=== PATIENT | male | born 1960 | race American Indian/Alaskan Native ===

== ENCOUNTER 2017-06-02 05:06 | Emergency (ER) | payer MEDICAID ==
[~2017-06-02] VITALS: Ht 177.8 cm; Wt 71.6 kg
[~2017-06-02 05:06] MED LIST: DIPH-423 PO
[2017-06-02 05:56] LABS: BASOPHILS # (AUTO) 0.1 X10'3 (0-0.2); BASOPHILS % (AUTO) 2.8 % (0-1); EOSINOPHILS # (AUTO) 0.7 X10'3 (0-0.9); EOSINOPHILS % (AUTO) 13.9 % (0-6); HEMATOCRIT 33.3 % (42.0-52.0); HEMOGLOBIN 11.7 g/dl (14.0-17.9); LYMPHOCYTES # (AUTO) 1.9 X10'3 (1.1-4.8); LYMPHOCYTES % (AUTO) 38.2 % (21-51); MEAN CORPUSCULAR HEMOGLOBIN 32.3 PG (27.0-31.0); MEAN CORPUSCULAR HGB CONC 35.1 % (33.0-36.5); MEAN PLATELET VOLUME 7.4 FL (7.4-10.4); MONOCYTES # (AUTO) 0.4 X10'3 (0-0.9); MONOCYTES % (AUTO) 8.1 % (2-12); NEUTROPHILS # (AUTO) 1.8 X10'3 (1.8-7.7); PLATELET COUNT 83 X10'3 (140-440); RED BLOOD COUNT 3.62 X10'6 (4.70-6.10); RED CELL DISTRIBUTION WIDTH 17.3 % (11.5-14.5); WHITE BLOOD COUNT 4.9 X10'3 (4.5-11.0)
[2017-06-02 06:23] LABS: ANISOCYTOSIS 1+; PLATELET ESTIMATE DECREASED; TARGET CELLS 2+
[2017-06-02 06:33] LABS: ALANINE AMINOTRANSFERASE 62 U/L (12-78); ALBUMIN 3.3 G/DL (3.4-5.0); ALBUMIN/GLOBULIN RATIO 0.8 (1.1-1.5); ALKALINE PHOSPHATASE 154 IU/L (46-116); ANION GAP 12 (8-16); ASPARTATE AMINO TRANSFERASE 114 U/L (10-37); BILIRUBIN,TOTAL 1.3 MG/DL (0.1-1.0); BLOOD UREA NITROGEN 5 MG/DL (7-18); BUN/CREATININE RATIO 7.2 (5.4-32.0); CALCIUM 8.4 MG/DL (8.5-10.1); CHLORIDE 107 MMOL/L (99-107); CREATININE 0.69 MG/DL (0.60-1.10); GLUCOSE 116 MG/DL (70-104); POTASSIUM 3.9 MMOL/L (3.5-5.1); SODIUM 147 MMOL/L (135-145); TOTAL CARBON DIOXIDE 28.1 MMOL/L (24-32); TOTAL PROTEIN 7.7 G/DL (6.4-8.2); eGFR > 90 ML/MIN
[2017-06-02 06:34] LABS: INR 1.2 INR; PARTIAL THROMBOPLASTIN TIME 29 SECONDS (22-32); PROTHROMBIN TIME 12.1 SECONDS (9.0-12.0)
[2017-06-02 06:48] LABS: ETHANOL 0.219 GM/DL (0.0-0.010)
[2017-06-02 11:08] VITALS: BP 117/73
== END 2017-06-02 10:55 | disposition home or self-care (01) ==
LOC: ER 05:06
DX: R07.9 Chest pain, unspecified (principal); I10 Essential (primary) hypertension; G89.29 Other chronic pain; F12.90 Cannabis use, unspecified, uncomplicated; F17.200 Nicotine dependence, unspecified, uncomplicated; Z59.0 Homelessness
CPT/HCPCS: 36415; 71045; 80053; 80320; 84484; 85025; 85610; 85730; 93005; 99285; A6449; J7030

== ENCOUNTER 2017-09-17 02:59 | Emergency (ER) | payer MEDICAID ==
[~2017-09-17] VITALS: Ht 177.8 cm; Wt 57.5 kg
[2017-09-17 03:05] VITALS: BP 112/65
== END 2017-09-17 03:16 | disposition home or self-care (01) ==
LOC: ER 02:59
DX: R51 Headache (principal); R21 Rash and other nonspecific skin eruption; R46.0 Very low level of personal hygiene; I10 Essential (primary) hypertension; G89.29 Other chronic pain; M19.90 Unspecified osteoarthritis, unspecified site; Z79.899 Other long term (current) drug therapy; Z59.0 Homelessness; W21.11XA Struck by baseball bat, initial encounter; Y93.89 Activity, other specified; Y92.89 Other specified places as the place of occurrence of the external cause; Y99.2 Volunteer activity
CPT/HCPCS: 99281

== ENCOUNTER 2017-10-15 03:00 | Inpatient (IN) | payer MEDICAID ==
[~2017-10-15] VITALS: Ht 177.8 cm; Wt 67.0 kg
[2017-10-15] MEDS: pantoprazole 40MG/NS 100ML BAG 100 ML IV SCH ×2 (03:39→06:26)
[2017-10-15 03:59] LABS: BASOPHILS # (AUTO) 0.1 X10'3 (0-0.2); BASOPHILS % (AUTO) 1.7 % (0-1); EOSINOPHILS # (AUTO) 0.3 X10'3 (0-0.9); EOSINOPHILS % (AUTO) 8.1 % (0-6); HEMATOCRIT 34.4 % (42.0-52.0); HEMOGLOBIN 11.8 g/dl (14.0-17.9); LYMPHOCYTES # (AUTO) 1.2 X10'3 (1.1-4.8); LYMPHOCYTES % (AUTO) 34.2 % (21-51); MEAN CORPUSCULAR HEMOGLOBIN 33.3 PG (27.0-31.0); MEAN CORPUSCULAR HGB CONC 34.3 % (33.0-36.5); MEAN PLATELET VOLUME 7.6 FL (7.4-10.4); MONOCYTES # (AUTO) 0.3 X10'3 (0-0.9); MONOCYTES % (AUTO) 8.7 % (2-12); NEUTROPHILS # (AUTO) 1.7 X10'3 (1.8-7.7); NEUTROPHILS % (AUTO) 47.3 % (42-75); PLATELET COUNT 68 X10'3 (140-440); RED BLOOD COUNT 3.55 X10'6 (4.70-6.10); RED CELL DISTRIBUTION WIDTH 26.1 % (11.5-14.5); WHITE BLOOD COUNT 3.6 X10'3 (4.5-11.0)
[2017-10-15 04:04] LABS: INR 1.5 INR; PROTHROMBIN TIME 14.9 SECONDS (9.0-12.0)
[2017-10-15 04:08] LABS: ALANINE AMINOTRANSFERASE 52 U/L (12-78); ALBUMIN 2.2 G/DL (3.4-5.0); ALBUMIN/GLOBULIN RATIO 0.5 (1.1-1.5); ALKALINE PHOSPHATASE 247 IU/L (46-116); ANION GAP 11 (8-16); ASPARTATE AMINO TRANSFERASE 134 U/L (10-37); BILIRUBIN,TOTAL 8.9 MG/DL (0.1-1.0); BLOOD UREA NITROGEN 5 MG/DL (7-18); BUN/CREATININE RATIO 7.7 (5.4-32.0); CALCIUM 6.6 MG/DL (8.5-10.1); CHLORIDE 109 MMOL/L (99-107); CREATININE 0.65 MG/DL (0.60-1.10); GLUCOSE 119 MG/DL (70-104); POTASSIUM 3.4 MMOL/L (3.5-5.1); SODIUM 143 MMOL/L (135-145); TOTAL CARBON DIOXIDE 22.6 MMOL/L (24-32); TOTAL PROTEIN 6.9 G/DL (6.4-8.2); eGFR > 90 ML/MIN
[2017-10-15 04:10] LABS: CLARITY,URINE CLEAR (Clear); COLOR,URINE YELLOW (Yellow); GLUCOSE, URINE NEGATIVE (Neg); KETONES,URINE NEGATIVE (Neg); LEUKOCYTE ESTERASE ,URINE NEGATIVE (Neg); NITRITES, URINE NEGATIVE (Neg); OCCULT BLOOD,URINE NEGATIVE (Neg); PROTEIN,URINE NEGATIVE (Neg)
[2017-10-15 04:14] LABS: UA COLLECTION TYPE CLN CATCH MIDSTREAM
[2017-10-15 05:08] LABS: TOTAL CELLS COUNTED 100
[2017-10-15 05:10] LABS: PLATELET ESTIMATE DECREASED
[2017-10-15 05:11] LABS: TARGET CELLS 1+
[2017-10-15] MEDS ORDERED: normal saline 1000ml 1,000 ML IV SCH (05:21)
[2017-10-15] MEDS ORDERED: ondansetron/PF 4mg/2ml inj IV PRN (05:25)
[2017-10-15] MEDS ORDERED: acetaminophen 325mg tablet PO PRN (05:25)
[2017-10-15] MEDS ORDERED: albuterol 2.5 MG/3 ML nebule NEB PRN (05:35)
[2017-10-15] MEDS ORDERED: NO HOME MEDS (08:10)
[2017-10-15] MEDS ORDERED: potassium Cl 40MEQ/NS 500ml 500 ML IV PRN ×2 (08:15)
[2017-10-15] MEDS ORDERED: octreotide inj. 1,250 MCG in normal saline 250ml IV soln 243.75 ML IV SCH (08:15)
[2017-10-15] MEDS ORDERED: magnesium 4gm in 100ml NS 100 ML IV PRN (08:15)
[2017-10-15] MEDS ORDERED: magnesium Cl slow-release 64mg tablet PO PRN (08:15)
[2017-10-15] MEDS ORDERED: potassium Cl 20 mEq SR tablet PO PRN ×2 (08:15)
[2017-10-15] MEDS ORDERED: magnesium/D5W IVPB 100 ML IV PRN (08:15)
[2017-10-15 08:35] LABS: BASOPHILS # (AUTO) 0.1 X10'3 (0-0.2); BASOPHILS % (AUTO) 1.9 % (0-1); EOSINOPHILS # (AUTO) 0.3 X10'3 (0-0.9); EOSINOPHILS % (AUTO) 7.4 % (0-6); HEMATOCRIT 32.6 % (42.0-52.0); HEMOGLOBIN 11.3 g/dl (14.0-17.9); LYMPHOCYTES % (AUTO) 27.6 % (21-51); MEAN CORPUSCULAR HEMOGLOBIN 33.5 PG (27.0-31.0); MEAN CORPUSCULAR HGB CONC 34.5 % (33.0-36.5); MEAN CORPUSCULAR VOLUME 97.1 FL (78-98); MEAN PLATELET VOLUME 7.5 FL (7.4-10.4); MONOCYTES # (AUTO) 0.4 X10'3 (0-0.9); MONOCYTES % (AUTO) 10.3 % (2-12); NEUTROPHILS # (AUTO) 1.8 X10'3 (1.8-7.7); NEUTROPHILS % (AUTO) 52.8 % (42-75); PLATELET COUNT 59 X10'3 (140-440); RED BLOOD COUNT 3.36 X10'6 (4.70-6.10); RED CELL DISTRIBUTION WIDTH 27.6 % (11.5-14.5); WHITE BLOOD COUNT 3.5 X10'3 (4.5-11.0)
[2017-10-15] MEDS ORDERED: GABA600T2 PO (09:32)
[2017-10-15] MEDS ORDERED: blood pressure med (09:33)
[2017-10-15] MEDS ORDERED: HYDR-565 PO (09:35)
[2017-10-15 11:39] VITALS: BP 122/84
[2017-10-16] MEDS ORDERED: pneumococcal 23-VAL P-sac vacc 25 mcg/0.5ml vial IMVAC ONE (10:00)
== END 2017-10-15 11:35 | disposition left against medical advice (07) | DRG 253 ==
LOC: ER 03:00 → ED HOLD 05:21
PROVIDERS: ADMIT Internal Medicine; ATTEND Internal Medicine
DX: K92.2 Gastrointestinal hemorrhage, unspecified (principal); K74.60 Unspecified cirrhosis of liver; I10 Essential (primary) hypertension; B19.20 Unspecified viral hepatitis C without hepatic coma; F10.20 Alcohol dependence, uncomplicated; F17.200 Nicotine dependence, unspecified, uncomplicated; J44.9 Chronic obstructive pulmonary disease, unspecified; F12.90 Cannabis use, unspecified, uncomplicated; F41.9 Anxiety disorder, unspecified; G89.29 Other chronic pain; M19.90 Unspecified osteoarthritis, unspecified site; Z59.0 Homelessness; Z72.89 Other problems related to lifestyle
CPT/HCPCS: 36415; 76700; 80053; 81003; 85025; 85610; 87070; 99285; C9113; J2354; J7030

== ENCOUNTER 2017-12-13 17:40 | Inpatient (IN) | payer MEDICAID ==
[~2017-12-13] VITALS: Ht 1686.6 cm; Wt 64.7 kg
[~2017-12-13 17:40] MED LIST changes: -DIPH-423 PO; +GABA600T2 PO; +HYDR-565 PO; +NO HOME MEDS; +blood pressure med
[2017-12-13 18:48] LABS: BASOPHILS # (AUTO) 0.1 X10'3 (0-0.2); BASOPHILS % (AUTO) 2.2 % (0-1); EOSINOPHILS # (AUTO) 0.2 X10'3 (0-0.9); EOSINOPHILS % (AUTO) 4.6 % (0-6); HEMATOCRIT 31.5 % (42.0-52.0); HEMOGLOBIN 10.9 g/dl (14.0-17.9); LYMPHOCYTES # (AUTO) 1.6 X10'3 (1.1-4.8); LYMPHOCYTES % (AUTO) 34.4 % (21-51); MEAN CORPUSCULAR HEMOGLOBIN 37.3 PG (27.0-31.0); MEAN CORPUSCULAR HGB CONC 34.6 % (33.0-36.5); MEAN CORPUSCULAR VOLUME 107.9 FL (78-98); MEAN PLATELET VOLUME 7.4 FL (7.4-10.4); MONOCYTES # (AUTO) 0.5 X10'3 (0-0.9); MONOCYTES % (AUTO) 10.9 % (2-12); NEUTROPHILS # (AUTO) 2.3 X10'3 (1.8-7.7); NEUTROPHILS % (AUTO) 47.9 % (42-75); PLATELET COUNT 76 X10'3 (140-440); RED BLOOD COUNT 2.91 X10'6 (4.70-6.10); RED CELL DISTRIBUTION WIDTH 15.2 % (11.5-14.5); WHITE BLOOD COUNT 4.8 X10'3 (4.5-11.0)
[2017-12-13 19:01] LABS: INR 1.4 INR; PROTHROMBIN TIME 14.1 SECONDS (9.0-12.0)
[2017-12-13 19:04] LABS: ALANINE AMINOTRANSFERASE 36 U/L (12-78); ALBUMIN 2.1 G/DL (3.4-5.0); ALKALINE PHOSPHATASE 241 IU/L (46-116); ANION GAP 12 (8-16); ASPARTATE AMINO TRANSFERASE 89 U/L (10-37); BLOOD UREA NITROGEN 4 MG/DL (7-18); BUN/CREATININE RATIO 4.5 (5.4-32.0); CALCIUM 7.8 MG/DL (8.5-10.1); CHLORIDE 103 MMOL/L (99-107); CREATININE 0.88 MG/DL (0.60-1.10); LIPASE 161 U/L (73-393); POTASSIUM 3.1 MMOL/L (3.5-5.1); SODIUM 136 MMOL/L (135-145); TOTAL CARBON DIOXIDE 20.6 MMOL/L (24-32); eGFR 89 ML/MIN
[2017-12-13 19:06] LABS: LACTIC SEPSIS 2.2 MMOL/L (0.4-2.0)
[2017-12-13 19:07] LABS: ALBUMIN/GLOBULIN RATIO 0.4 (1.1-1.5); GLUCOSE 87 MG/DL (70-104); TOTAL PROTEIN 7.1 G/DL (6.4-8.2)
[2017-12-13 19:08] LABS: BILIRUBIN,TOTAL 3.7 MG/DL (0.1-1.0)
[2017-12-13] MEDS ORDERED: piperacillin/tazo 3.375gm/50ml 50 ML IV ONE (19:30)
[2017-12-13] MEDS ORDERED: iohexol 300mg/ml 100ml inj. ONE (19:42)
[2017-12-13] MEDS ORDERED: LIDOcaine 1.5% w/epinephrine 1:200,000 5ml ampul IJ ONE (21:10)
[2017-12-13] MEDS ORDERED: thiamine 100mg/ml 2ml inj. IV ONE (21:55)
[2017-12-13] MEDS ORDERED: haloperidol 5mg tablet PO PRN (21:55)
[2017-12-13] MEDS ORDERED: ipratropium/albuterol 3ml nebule NEB PRN (21:55)
[2017-12-13] MEDS ORDERED: acetaminophen 325mg tablet PO PRN (21:55)
[2017-12-13] MEDS ORDERED: haloperidol lactate 5mg/ml inj IM PRN (21:55)
[2017-12-13] MEDS ORDERED: HYDROmorphone inj. 0.5 MG/0.5 ML DISP.SYRIN IV PRN ×2 (21:55)
[2017-12-13] MEDS ORDERED: LORazepam 2 mg/ml vial IV PRN (21:55)
[2017-12-13] MEDS ORDERED: dextrose 50%-water 50ml dispensing syringe IV PRN (21:55)
[2017-12-13 23:15] VITALS: BP 138/86
[2017-12-13 23:32] LABS: CLARITY,URINE CLEAR (Clear); COLOR,URINE YELLOW (Yellow); GLUCOSE, URINE NEGATIVE (Neg); KETONES,URINE NEGATIVE (Neg); LEUKOCYTE ESTERASE ,URINE NEGATIVE (Neg); NITRITES, URINE POSITIVE (Neg); OCCULT BLOOD,URINE NEGATIVE (Neg); PROTEIN,URINE NEGATIVE (Neg)
[2017-12-13 23:35] LABS: UA COLLECTION TYPE CLN CATCH MIDSTREAM
[2017-12-13 23:37] LABS: RBC,URINE 0-2 /HPF (0-2)
[2017-12-13 23:38] LABS: AMORPHOUS URATES 2+; BACTERIA,URINE 2+ /HPF (Neg); SQUAMOUS EPITHELIAL CELL,UR NONE SEEN /LPF (FEW)
[2017-12-13 23:44] LABS: URINE AMPHETAMINE SCREEN NEGATIVE (Neg); URINE BARBITUATE SCREEN NEGATIVE (Neg); URINE BENZODIAZEPINES SCREEN NEGATIVE (Neg); URINE CANNABINOID SCREEN NEGATIVE (Neg); URINE COCAINE SCREEN NEGATIVE (Neg); URINE METHADONE SCREEN NEGATIVE (Neg); URINE OPIATE SCREEN NEGATIVE (Neg); URINE PHENCYCLIDINE SCREEN NEGATIVE (Neg)
[2017-12-13] MEDS ORDERED: HYDROmorphone 1 mg/ml syringe ONE (23:45)
[2017-12-13 23:57] LABS: AMYLASE,BODY FLUID 14 U/L; GLUCOSE,BODY FLUID 95 MG/DL; LDH,BODY FLUID 93 U/L
[2017-12-14] MEDS ORDERED: GABA-530 PO (00:03)
[2017-12-14 00:28] LABS: TOTAL PROTEIN,BODY FLUID < 2.0 G/DL
[2017-12-14] MEDS: piperacillin/tazo 3.375gm/50ml 50 ML IV SCH ×4 (00:28→23:44)
[2017-12-14 00:29] LABS: ALBUMIN,BODY FLUID < 0.6 G/DL
[2017-12-14 00:43] LABS: BF RBC COUNT 23 /CU MM; BF WBC COUNT 92 /CU MM (0-1000); BFAPPEAR CLEAR; BFCOLOR YELLOW; BFVOLUME 35 ML
[2017-12-14 00:49] LABS: BF MESOTHELIAL CELLS MODERATE; EOSINOPHILS,BODY FLUID 1 %; LYMPHOCYTES,BODY FLUID 19 %; MONOCYTES,BODY FLUID 69 %; NEUTROPHILS,BODY FLUID 11 %
[2017-12-14] MEDS ORDERED: HYDROmorphone 1 mg/ml syringe ONE (05:27)
[2017-12-14] MEDS ORDERED: magnesium 4gm in 100ml NS 100 ML IV PRN (05:45)
[2017-12-14] MEDS ORDERED: potassium Cl 40MEQ/NS 500ml 500 ML IV PRN ×2 (05:45)
[2017-12-14 06:19] LABS: ALANINE AMINOTRANSFERASE 29 U/L (12-78); ALBUMIN 1.9 G/DL (3.4-5.0); ALKALINE PHOSPHATASE 204 IU/L (46-116); ANION GAP 7 (8-16); ASPARTATE AMINO TRANSFERASE 81 U/L (10-37); BILIRUBIN,TOTAL 3.9 MG/DL (0.1-1.0); BLOOD UREA NITROGEN 3 MG/DL (7-18); BUN/CREATININE RATIO 4.2 (5.4-32.0); CALCIUM 7.4 MG/DL (8.5-10.1); CHLORIDE 105 MMOL/L (99-107); CREATININE 0.72 MG/DL (0.60-1.10); GLUCOSE 79 MG/DL (70-104); SODIUM 134 MMOL/L (135-145); eGFR > 90 ML/MIN
[2017-12-14 06:25] LABS: ALBUMIN/GLOBULIN RATIO 0.4 (1.1-1.5); TOTAL PROTEIN 6.4 G/DL (6.4-8.2)
[2017-12-14 07:17] LABS: BASOPHILS # (AUTO) 0.1 X10'3 (0-0.2); BASOPHILS % (AUTO) 1.9 % (0-1); EOSINOPHILS # (AUTO) 0.2 X10'3 (0-0.9); EOSINOPHILS % (AUTO) 4.1 % (0-6); HEMATOCRIT 31.1 % (42.0-52.0); HEMOGLOBIN 10.7 g/dl (14.0-17.9); LYMPHOCYTES % (AUTO) 27.2 % (21-51); MEAN CORPUSCULAR HGB CONC 34.3 % (33.0-36.5); MEAN CORPUSCULAR VOLUME 107.8 FL (78-98); MEAN PLATELET VOLUME 7.6 FL (7.4-10.4); MONOCYTES # (AUTO) 0.4 X10'3 (0-0.9); MONOCYTES % (AUTO) 11.3 % (2-12); NEUTROPHILS # (AUTO) 2.1 X10'3 (1.8-7.7); NEUTROPHILS % (AUTO) 55.5 % (42-75); PLATELET COUNT 81 X10'3 (140-440); RED BLOOD COUNT 2.88 X10'6 (4.70-6.10); RED CELL DISTRIBUTION WIDTH 15.6 % (11.5-14.5); WHITE BLOOD COUNT 3.8 X10'3 (4.5-11.0)
[2017-12-14 07:47] LABS: MAGNESIUM 1.2 MG/DL (1.5-2.4)
[2017-12-14 08:00] VITALS: BP 123/65
[2017-12-14] MEDS: thiamine 100mg tablet PO SCH (09:00)
[2017-12-14] MEDS: magnesium Cl slow-release 64mg tablet PO PRN ×2 (09:01→15:18)
[2017-12-14] MEDS: gabapentin 100mg capsule PO SCH ×3 (09:01→23:43)
[2017-12-14] MEDS: spironolactone 25 MG tablet PO SCH ×2 (09:01→20:31)
[2017-12-14] MEDS: folic acid 1mg tablet PO SCH (09:01)
[2017-12-14] MEDS: potassium Cl 20 mEq SR tablet PO PRN ×3 (09:01→20:34)
[2017-12-14] MEDS: furosemide 20MG tablet PO SCH (09:02)
[2017-12-14] MEDS: lactulose 20gm/30ml cup PO SCH ×3 (09:02→20:36)
[2017-12-14] MEDS: multivitamins, therapeutics tablet PO SCH (09:02)
[2017-12-14 09:11] LABS: TOTAL CELLS COUNTED 100
[2017-12-14 09:12] LABS: PLATELET ESTIMATE DECREASED
[2017-12-14] MEDS ORDERED: sodium bicarbonate (8.4%) inj. 100 MEQ in dextrose 5%-water 1,000 ML IV SCH (09:45)
[2017-12-14] MEDS: pantoprazole 40mg Tablet.DR PO SCH (11:13)
[2017-12-14 12:00] VITALS: BP 130/72
[2017-12-14] MEDS ORDERED: HYDROmorphone 1 mg/ml syringe IV PRN (12:24)
[2017-12-14] MEDS ORDERED: gadopentetate dimeglumine 7.5 MMOL/15 ML syringe ONE (14:36)
[2017-12-14] MEDS ORDERED: diphenhydrAMINE 25mg capsule PO PRN (15:00)
[2017-12-14] MEDS ORDERED: LIDOcaine 1%/PF 5ML 10 MG/ML VIAL ONE (15:52)
[2017-12-14 16:05] VITALS: BP 125/42
[2017-12-14 16:51] VITALS: BP 126/79
[2017-12-14] MEDS ORDERED: albumin 25% 50mL bottle IV ONE (17:00)
[2017-12-14 18:00] VITALS: BP 124/68
[2017-12-14] MEDS: rifaximin 550mg tablet PO SCH (20:31)
[2017-12-14] MEDS: propranolol 10mg tablet PO SCH (20:31)
[2017-12-14] MEDS: HYDROmorphone 1 mg/ml syringe IV PRN (20:54)
[2017-12-15] VITALS: BP 136/78
[2017-12-15 01:29] LABS: ALANINE AMINOTRANSFERASE 30 U/L (12-78); ALBUMIN 2.3 G/DL (3.4-5.0); ALKALINE PHOSPHATASE 199 IU/L (46-116); ASPARTATE AMINO TRANSFERASE 79 U/L (10-37); BILIRUBIN,TOTAL 5.8 MG/DL (0.1-1.0); BLOOD UREA NITROGEN 2 MG/DL (7-18); BUN/CREATININE RATIO 2.2 (5.4-32.0); CALCIUM 7.5 MG/DL (8.5-10.1); CREATININE 0.91 MG/DL (0.60-1.10); TOTAL CARBON DIOXIDE 28.3 MMOL/L (24-32); eGFR 86 ML/MIN
[2017-12-15 01:58] LABS: ALBUMIN/GLOBULIN RATIO 0.4 (1.1-1.5); ANION GAP 17 (8-16); CHLORIDE 103 MMOL/L (99-107); GLUCOSE 83 MG/DL (70-104); PHOSPHORUS 3.8 MG/DL (2.3-4.5); POTASSIUM 3.6 MMOL/L (3.5-5.1); SODIUM 148 MMOL/L (135-145); TOTAL PROTEIN 7.6 G/DL (6.4-8.2)
[2017-12-15 01:59] LABS: BASOPHILS # (AUTO) 0.1 X10'3 (0-0.2); BASOPHILS % (AUTO) 1.3 % (0-1); EOSINOPHILS # (AUTO) 0.1 X10'3 (0-0.9); EOSINOPHILS % (AUTO) 3.8 % (0-6); HEMATOCRIT 35.9 % (42.0-52.0); HEMOGLOBIN 12.4 g/dl (14.0-17.9); LYMPHOCYTES # (AUTO) 1.2 X10'3 (1.1-4.8); LYMPHOCYTES % (AUTO) 29.9 % (21-51); MEAN CORPUSCULAR HEMOGLOBIN 37.3 PG (27.0-31.0); MEAN CORPUSCULAR HGB CONC 34.5 % (33.0-36.5); MEAN CORPUSCULAR VOLUME 108.3 FL (78-98); MEAN PLATELET VOLUME 7.4 FL (7.4-10.4); MONOCYTES # (AUTO) 0.4 X10'3 (0-0.9); MONOCYTES % (AUTO) 11.2 % (2-12); NEUTROPHILS # (AUTO) 2.1 X10'3 (1.8-7.7); NEUTROPHILS % (AUTO) 53.8 % (42-75); PLATELET COUNT 84 X10'3 (140-440); RED BLOOD COUNT 3.32 X10'6 (4.70-6.10); RED CELL DISTRIBUTION WIDTH 15.1 % (11.5-14.5); WHITE BLOOD COUNT 3.9 X10'3 (4.5-11.0)
[2017-12-15] MEDS: piperacillin/tazo 3.375gm/50ml 50 ML IV SCH ×3 (07:56→23:51)
[2017-12-15] MEDS: propranolol 10mg tablet PO SCH ×2 (07:56→20:00)
[2017-12-15] MEDS: rifaximin 550mg tablet PO SCH ×2 (07:56→20:16)
[2017-12-15] MEDS: pantoprazole 40mg Tablet.DR PO SCH (07:56)
[2017-12-15] MEDS: folic acid 1mg tablet PO SCH (07:56)
[2017-12-15] MEDS: gabapentin 100mg capsule PO SCH ×3 (07:56→23:52)
[2017-12-15] MEDS: furosemide 20MG tablet PO SCH (07:56)
[2017-12-15] MEDS: lactulose 20gm/30ml cup PO SCH ×3 (07:57→20:22)
[2017-12-15] MEDS: spironolactone 25 MG tablet PO SCH ×2 (07:57→20:16)
[2017-12-15] MEDS: multivitamins, therapeutics tablet PO SCH (07:57)
[2017-12-15] MEDS: thiamine 100mg tablet PO SCH (07:57)
[2017-12-15 08:00] VITALS: BP 100/61
[2017-12-15] MEDS: magnesium 1gm/100ml D5W IVPB 100 ML IV SCH ×2 (10:54→13:51)
[2017-12-15 12:00] VITALS: BP 103/57
[2017-12-15] MEDS: potassium CL 20mEq in D5-1/2NS 1,000 ML IV SCH (16:16)
[2017-12-15 18:00] VITALS: BP 100/62
[2017-12-15] MEDS: HYDROmorphone 1 mg/ml syringe IV PRN (20:55)
[2017-12-15] MEDS: LORazepam 2 mg/ml vial IV PRN (23:04)
[2017-12-16] VITALS: BP 100/63
[2017-12-16 00:10] VITALS: BP 100/62
[2017-12-16] MEDS: LORazepam 2 mg/ml vial IV PRN (03:25)
[2017-12-16 04:48] LABS: HEMATOCRIT 32.9 % (42.0-52.0); HEMOGLOBIN 11.5 g/dl (14.0-17.9); MEAN CORPUSCULAR HEMOGLOBIN 38.4 PG (27.0-31.0); MEAN CORPUSCULAR HGB CONC 35.1 % (33.0-36.5); MEAN CORPUSCULAR VOLUME 109.4 FL (78-98); MEAN PLATELET VOLUME 7.6 FL (7.4-10.4); PLATELET COUNT 73 X10'3 (140-440); RED BLOOD COUNT 3.01 X10'6 (4.70-6.10); RED CELL DISTRIBUTION WIDTH 14.5 % (11.5-14.5); WHITE BLOOD COUNT 4.7 X10'3 (4.5-11.0)
[2017-12-16 04:55] LABS: ALANINE AMINOTRANSFERASE 24 U/L (12-78); ALBUMIN 1.8 G/DL (3.4-5.0); ALKALINE PHOSPHATASE 173 IU/L (46-116); ANION GAP 6 (8-16); ASPARTATE AMINO TRANSFERASE 52 U/L (10-37); BLOOD UREA NITROGEN 5 MG/DL (7-18); BUN/CREATININE RATIO 5.5 (5.4-32.0); CALCIUM 7.5 MG/DL (8.5-10.1); CHLORIDE 100 MMOL/L (99-107); CREATININE 0.91 MG/DL (0.60-1.10); MAGNESIUM 1.4 MG/DL (1.5-2.4); POTASSIUM 3.2 MMOL/L (3.5-5.1); SODIUM 135 MMOL/L (135-145); TOTAL CARBON DIOXIDE 29.2 MMOL/L (24-32); eGFR 86 ML/MIN
[2017-12-16 05:26] LABS: ALBUMIN/GLOBULIN RATIO 0.5 (1.1-1.5); GLUCOSE 86 MG/DL (70-104); TOTAL PROTEIN 5.2 G/DL (6.4-8.2)
[2017-12-16 05:36] LABS: PLATELET ESTIMATE DECREASED; TOTAL CELLS COUNTED 100
[2017-12-16 07:35] VITALS: BP 129/53
[2017-12-16] MEDS: piperacillin/tazo 3.375gm/50ml 50 ML IV SCH ×2 (07:48→16:45)
[2017-12-16] MEDS: multivitamins, therapeutics tablet PO SCH (07:49)
[2017-12-16] MEDS: pantoprazole 40mg Tablet.DR PO SCH (07:49)
[2017-12-16] MEDS: folic acid 1mg tablet PO SCH (07:49)
[2017-12-16] MEDS: propranolol 10mg tablet PO SCH ×2 (07:49→20:00)
[2017-12-16] MEDS: furosemide 20MG tablet PO SCH (07:49)
[2017-12-16] MEDS: gabapentin 100mg capsule PO SCH ×2 (07:49→16:45)
[2017-12-16] MEDS: thiamine 100mg tablet PO SCH (07:49)
[2017-12-16] MEDS: spironolactone 25 MG tablet PO SCH ×2 (07:49→20:24)
[2017-12-16] MEDS: lactulose 20gm/30ml cup PO SCH ×3 (07:49→20:24)
[2017-12-16] MEDS: rifaximin 550mg tablet PO SCH ×2 (07:49→20:24)
[2017-12-16] MEDS: potassium Cl 20 mEq SR tablet PO PRN ×3 (09:11→16:45)
[2017-12-16] MEDS: magnesium Cl slow-release 64mg tablet PO PRN (09:11)
[2017-12-16] MEDS: LORazepam 1 MG tablet PO PRN ×3 (09:18→16:45)
[2017-12-16] MEDS: potassium CL 20mEq in D5-1/2NS 1,000 ML IV SCH ×2 (11:17→18:25)
[2017-12-16 12:50] VITALS: BP 104/59
[2017-12-16] MEDS ORDERED: magnesium 1gm/100ml D5W IVPB 100 ML IV ONE (16:20)
[2017-12-16] MEDS: mag hydrox/Alum hydrox/simeth 30ml oral suspension PO PRN (16:52)
[2017-12-16 19:00] VITALS: BP 96/54
[2017-12-16 21:54] LABS: HEMOGLOBIN A1C 4.5 % (4.5-6.2)
[2017-12-17] VITALS: BP 107/58
[2017-12-17] MEDS: piperacillin/tazo 3.375gm/50ml 50 ML IV SCH ×3 (00:45→16:14)
[2017-12-17] MEDS: gabapentin 100mg capsule PO SCH ×4 (00:45→23:20)
[2017-12-17] MEDS: lactulose 20gm/30ml cup PO SCH ×6 (00:45→23:20)
[2017-12-17] MEDS: potassium CL 20mEq in D5-1/2NS 1,000 ML IV SCH ×2 (02:43→19:57)
[2017-12-17 04:45] VITALS: BP 112/58
[2017-12-17 07:14] LABS: BASOPHILS # (AUTO) 0.1 X10'3 (0-0.2); EOSINOPHILS # (AUTO) 0.2 X10'3 (0-0.9); EOSINOPHILS % (AUTO) 4.4 % (0-6); HEMATOCRIT 32.7 % (42.0-52.0); HEMOGLOBIN 10.9 g/dl (14.0-17.9); LYMPHOCYTES # (AUTO) 1.3 X10'3 (1.1-4.8); LYMPHOCYTES % (AUTO) 32.4 % (21-51); MEAN CORPUSCULAR HEMOGLOBIN 36.5 PG (27.0-31.0); MEAN CORPUSCULAR HGB CONC 33.2 % (33.0-36.5); MEAN CORPUSCULAR VOLUME 109.9 FL (78-98); MONOCYTES # (AUTO) 0.4 X10'3 (0-0.9); MONOCYTES % (AUTO) 10.3 % (2-12); NEUTROPHILS % (AUTO) 50.9 % (42-75); PLATELET COUNT 85 X10'3 (140-440); RED BLOOD COUNT 2.98 X10'6 (4.70-6.10); RED CELL DISTRIBUTION WIDTH 14.4 % (11.5-14.5)
[2017-12-17 07:26] LABS: ALANINE AMINOTRANSFERASE 33 U/L (12-78); ALBUMIN 1.7 G/DL (3.4-5.0); ALKALINE PHOSPHATASE 155 IU/L (46-116); ANION GAP 4 (8-16); ASPARTATE AMINO TRANSFERASE 89 U/L (10-37); BILIRUBIN,TOTAL 5.3 MG/DL (0.1-1.0); BLOOD UREA NITROGEN 6 MG/DL (7-18); BUN/CREATININE RATIO 6.4 (5.4-32.0); CALCIUM 7.9 MG/DL (8.5-10.1); CHLORIDE 102 MMOL/L (99-107); CREATININE 0.94 MG/DL (0.60-1.10); MAGNESIUM 1.5 MG/DL (1.5-2.4); POTASSIUM 4.2 MMOL/L (3.5-5.1); SODIUM 133 MMOL/L (135-145); TOTAL CARBON DIOXIDE 26.7 MMOL/L (24-32); eGFR 83 ML/MIN
[2017-12-17 07:34] LABS: ALBUMIN/GLOBULIN RATIO 0.4 (1.1-1.5); GLUCOSE 97 MG/DL (70-104); PHOSPHORUS 3.4 MG/DL (2.3-4.5); TOTAL PROTEIN 6.3 G/DL (6.4-8.2)
[2017-12-17 07:45] LABS: OCCULT BLOOD STOOL NEGATIVE (Neg)
[2017-12-17 07:53] VITALS: BP 105/58
[2017-12-17] MEDS: pantoprazole 40mg Tablet.DR PO SCH (08:06)
[2017-12-17] MEDS: folic acid 1mg tablet PO SCH (08:06)
[2017-12-17] MEDS: propranolol 10mg tablet PO SCH ×2 (08:06→19:55)
[2017-12-17] MEDS: spironolactone 25 MG tablet PO SCH ×2 (08:06→19:55)
[2017-12-17] MEDS: rifaximin 550mg tablet PO SCH ×2 (08:07→19:55)
[2017-12-17] MEDS: thiamine 100mg tablet PO SCH (08:07)
[2017-12-17] MEDS: furosemide 20MG tablet PO SCH (08:07)
[2017-12-17] MEDS: lactobacillus rhamnosus 10,000 MMU CELLS/CAPSULE PO SCH ×2 (08:07→19:54)
[2017-12-17] MEDS: multivitamins, therapeutics tablet PO SCH (08:07)
[2017-12-17] MEDS ORDERED: azithromycin/NS 500mg/250ml 250 ML IV ONE (10:10)
[2017-12-17 11:00] LABS: CLARITY,URINE CLEAR (Clear); COLOR,URINE YELLOW (Yellow); GLUCOSE, URINE NEGATIVE (Neg); KETONES,URINE NEGATIVE (Neg); LEUKOCYTE ESTERASE ,URINE NEGATIVE (Neg); NITRITES, URINE NEGATIVE (Neg); OCCULT BLOOD,URINE NEGATIVE (Neg); PH,URINE 8.5 (4.8-8.0); PROTEIN,URINE NEGATIVE (Neg); UA COLLECTION TYPE NON-SPECIFIED
[2017-12-17 11:24] VITALS: BP 100/58
[2017-12-17] MEDS: vancomycin/NS 1 GM ADD-VANTAGE 250 ML IV SCH ×2 (12:40→23:20)
[2017-12-17] MEDS: ondansetron/PF 4mg/2ml inj IV PRN (12:40)
[2017-12-17] MEDS: ipratropium/albuterol 3ml nebule NEB SCH ×3 (14:21→23:55)
[2017-12-17 19:50] VITALS: BP 108/64
[2017-12-17 20:00] VITALS: BP 108/64
[2017-12-17] MEDS ORDERED: LORazepam 2 mg/ml vial IV PRN (21:55)
[2017-12-18] VITALS: BP 89/52
[2017-12-18] MEDS: piperacillin/tazo 3.375gm/50ml 50 ML IV SCH ×3 (00:58→16:13)
[2017-12-18] MEDS: ipratropium/albuterol 3ml nebule NEB SCH ×6 (03:21→23:06)
[2017-12-18 06:35] LABS: BASOPHILS # (AUTO) 0.1 X10'3 (0-0.2); EOSINOPHILS # (AUTO) 0.2 X10'3 (0-0.9); EOSINOPHILS % (AUTO) 5.7 % (0-6); HEMATOCRIT 30.2 % (42.0-52.0); HEMOGLOBIN 10.4 g/dl (14.0-17.9); LYMPHOCYTES # (AUTO) 1.5 X10'3 (1.1-4.8); MEAN CORPUSCULAR HEMOGLOBIN 37.4 PG (27.0-31.0); MEAN CORPUSCULAR HGB CONC 34.3 % (33.0-36.5); MEAN PLATELET VOLUME 7.7 FL (7.4-10.4); MONOCYTES # (AUTO) 0.5 X10'3 (0-0.9); MONOCYTES % (AUTO) 10.9 % (2-12); NEUTROPHILS # (AUTO) 1.9 X10'3 (1.8-7.7); NEUTROPHILS % (AUTO) 44.4 % (42-75); PLATELET COUNT 90 X10'3 (140-440); RED BLOOD COUNT 2.77 X10'6 (4.70-6.10); RED CELL DISTRIBUTION WIDTH 15.5 % (11.5-14.5); WHITE BLOOD COUNT 4.2 X10'3 (4.5-11.0)
[2017-12-18 06:57] LABS: ALANINE AMINOTRANSFERASE 26 U/L (12-78); ALBUMIN 1.7 G/DL (3.4-5.0); ALKALINE PHOSPHATASE 152 IU/L (46-116); ANION GAP 5 (8-16); ASPARTATE AMINO TRANSFERASE 73 U/L (10-37); BILIRUBIN,TOTAL 4.6 MG/DL (0.1-1.0); BLOOD UREA NITROGEN 7 MG/DL (7-18); BUN/CREATININE RATIO 6.5 (5.4-32.0); CALCIUM 7.7 MG/DL (8.5-10.1); CHLORIDE 101 MMOL/L (99-107); CREATININE 1.07 MG/DL (0.60-1.10); MAGNESIUM 1.1 MG/DL (1.5-2.4); POTASSIUM 4.1 MMOL/L (3.5-5.1); SODIUM 130 MMOL/L (135-145); TOTAL CARBON DIOXIDE 23.8 MMOL/L (24-32); eGFR 71 ML/MIN
[2017-12-18 06:59] LABS: ALBUMIN/GLOBULIN RATIO 0.4 (1.1-1.5); GLUCOSE 96 MG/DL (70-104); PHOSPHORUS 2.8 MG/DL (2.3-4.5); TOTAL PROTEIN 6.3 G/DL (6.4-8.2)
[2017-12-18 07:40] VITALS: BP 109/64
[2017-12-18] MEDS: lactulose 20gm/30ml cup PO SCH ×2 (07:54→16:12)
[2017-12-18] MEDS: rifaximin 550mg tablet PO SCH ×2 (07:54→19:28)
[2017-12-18] MEDS: thiamine 100mg tablet PO SCH (07:55)
[2017-12-18] MEDS: propranolol 10mg tablet PO SCH ×2 (07:55→19:28)
[2017-12-18] MEDS: LORazepam 1 MG tablet PO PRN ×2 (07:55→11:43)
[2017-12-18] MEDS: pantoprazole 40mg Tablet.DR PO SCH (07:55)
[2017-12-18] MEDS: folic acid 1mg tablet PO SCH (07:55)
[2017-12-18] MEDS: spironolactone 25 MG tablet PO SCH ×2 (07:55→19:28)
[2017-12-18] MEDS: furosemide 20MG tablet PO SCH (07:55)
[2017-12-18] MEDS: lactobacillus rhamnosus 10,000 MMU CELLS/CAPSULE PO SCH ×2 (07:55→19:28)
[2017-12-18] MEDS: multivitamins, therapeutics tablet PO SCH (07:55)
[2017-12-18] MEDS: gabapentin 100mg capsule PO SCH ×2 (07:55→16:12)
[2017-12-18] MEDS: magnesium 1gm/100ml D5W IVPB 100 ML IV PRN ×2 (09:59→12:44)
[2017-12-18] MEDS: vancomycin/NS 1 GM ADD-VANTAGE 250 ML IV SCH ×2 (11:06→22:36)
[2017-12-18] MEDS: potassium CL 20mEq in D5-1/2NS 1,000 ML IV SCH (11:12)
[2017-12-18 12:09] VITALS: BP 93/57
[2017-12-18 20:00] VITALS: BP 95/56
[2017-12-18] MEDS ORDERED: VANCOMYCIN LEVEL IV ONE (22:30)
[2017-12-18] MEDS: HYDROmorphone 1 mg/ml syringe IV PRN (23:01)
[2017-12-19] VITALS: BP 103/56
[2017-12-19] MEDS: lactulose 20gm/30ml cup PO SCH ×4 (00:26→23:12)
[2017-12-19] MEDS: piperacillin/tazo 3.375gm/50ml 50 ML IV SCH ×3 (00:26→15:39)
[2017-12-19] MEDS: gabapentin 100mg capsule PO SCH ×4 (00:26→23:12)
[2017-12-19] MEDS: ipratropium/albuterol 3ml nebule NEB SCH ×6 (03:14→23:00)
[2017-12-19] MEDS: potassium CL 20mEq in D5-1/2NS 1,000 ML IV SCH ×2 (04:25→13:05)
[2017-12-19 05:57] LABS: MAGNESIUM 1.4 MG/DL (1.5-2.4)
[2017-12-19 06:00] LABS: PHOSPHORUS 3.5 MG/DL (2.3-4.5)
[2017-12-19 07:22] VITALS: BP 102/50
[2017-12-19] MEDS: spironolactone 25 MG tablet PO SCH ×2 (07:49→20:00)
[2017-12-19] MEDS: propranolol 10mg tablet PO SCH ×2 (07:49→20:00)
[2017-12-19] MEDS: pantoprazole 40mg Tablet.DR PO SCH (07:50)
[2017-12-19] MEDS: thiamine 100mg tablet PO SCH (07:50)
[2017-12-19] MEDS: multivitamins, therapeutics tablet PO SCH (07:50)
[2017-12-19] MEDS: furosemide 20MG tablet PO SCH (07:50)
[2017-12-19] MEDS: folic acid 1mg tablet PO SCH (07:50)
[2017-12-19] MEDS: lactobacillus rhamnosus 10,000 MMU CELLS/CAPSULE PO SCH ×2 (07:50→20:03)
[2017-12-19] MEDS: rifaximin 550mg tablet PO SCH ×2 (07:53→20:03)
[2017-12-19] MEDS ORDERED: VANCOMYCIN LEVEL IV ONE (10:30)
[2017-12-19] MEDS: magnesium 1gm/100ml D5W IVPB 100 ML IV PRN ×2 (10:35→11:12)
[2017-12-19] MEDS ORDERED: magnesium 4gm in 100ml NS 100 ML IV PRN (11:20)
[2017-12-19] MEDS: vancomycin/NS 1 GM ADD-VANTAGE 250 ML IV SCH (12:27)
[2017-12-19 12:38] VITALS: BP 88/50
[2017-12-19 20:00] VITALS: BP 86/46
[2017-12-19] MEDS: mag hydrox/Alum hydrox/simeth 30ml oral suspension PO PRN (20:03)
[2017-12-19] MEDS: vancomycin inj 1,250 MG in normal saline 250ml IV soln 250 ML IV SCH (23:12)
[2017-12-20] VITALS: BP 94/58
[2017-12-20] MEDS: potassium CL 20mEq in D5-1/2NS 1,000 ML IV SCH ×2 (01:44→15:45)
[2017-12-20] MEDS: piperacillin/tazo 3.375gm/50ml 50 ML IV SCH ×3 (01:47→15:18)
[2017-12-20] MEDS: ipratropium/albuterol 3ml nebule NEB SCH (03:00)
[2017-12-20] MEDS: spironolactone 25 MG tablet PO SCH ×3 (06:43→20:32)
[2017-12-20] MEDS: propranolol 10mg tablet PO SCH (06:43)
[2017-12-20] MEDS: furosemide 20MG tablet PO SCH (06:43)
[2017-12-20 07:45] VITALS: BP 80/39
[2017-12-20] MEDS: multivitamins, therapeutics tablet PO SCH (08:12)
[2017-12-20] MEDS: folic acid 1mg tablet PO SCH (08:12)
[2017-12-20] MEDS: pantoprazole 40mg Tablet.DR PO SCH (08:12)
[2017-12-20] MEDS: rifaximin 550mg tablet PO SCH ×2 (08:13→20:30)
[2017-12-20] MEDS: lactobacillus rhamnosus 10,000 MMU CELLS/CAPSULE PO SCH ×2 (08:13→20:30)
[2017-12-20] MEDS: thiamine 100mg tablet PO SCH (08:13)
[2017-12-20] MEDS: gabapentin 100mg capsule PO SCH ×2 (08:14→15:18)
[2017-12-20] MEDS: lactulose 20gm/30ml cup PO SCH ×2 (08:14→15:18)
[2017-12-20 09:13] LABS: BASOPHILS # (AUTO) 0.2 X10'3 (0-0.2); BASOPHILS % (AUTO) 3.9 % (0-1); EOSINOPHILS # (AUTO) 0.3 X10'3 (0-0.9); EOSINOPHILS % (AUTO) 5.4 % (0-6); HEMATOCRIT 32.8 % (42.0-52.0); HEMOGLOBIN 11.3 g/dl (14.0-17.9); LYMPHOCYTES # (AUTO) 1.7 X10'3 (1.1-4.8); LYMPHOCYTES % (AUTO) 35.5 % (21-51); MEAN CORPUSCULAR HEMOGLOBIN 37.8 PG (27.0-31.0); MEAN CORPUSCULAR HGB CONC 34.3 % (33.0-36.5); MEAN CORPUSCULAR VOLUME 110.3 FL (78-98); MEAN PLATELET VOLUME 7.9 FL (7.4-10.4); MONOCYTES # (AUTO) 0.5 X10'3 (0-0.9); MONOCYTES % (AUTO) 11.2 % (2-12); NEUTROPHILS # (AUTO) 2.1 X10'3 (1.8-7.7); PLATELET COUNT 116 X10'3 (140-440); RED BLOOD COUNT 2.97 X10'6 (4.70-6.10); RED CELL DISTRIBUTION WIDTH 15.6 % (11.5-14.5); WHITE BLOOD COUNT 4.8 X10'3 (4.5-11.0)
[2017-12-20 09:35] LABS: ALANINE AMINOTRANSFERASE 26 U/L (12-78); ALBUMIN 1.8 G/DL (3.4-5.0); ALKALINE PHOSPHATASE 157 IU/L (46-116); ANION GAP 4 (8-16); ASPARTATE AMINO TRANSFERASE 71 U/L (10-37); BILIRUBIN,TOTAL 4.4 MG/DL (0.1-1.0); BLOOD UREA NITROGEN 10 MG/DL (7-18); BUN/CREATININE RATIO 10.3 (5.4-32.0); CALCIUM 7.9 MG/DL (8.5-10.1); CHLORIDE 99 MMOL/L (99-107); CREATININE 0.97 MG/DL (0.60-1.10); SODIUM 129 MMOL/L (135-145); TOTAL CARBON DIOXIDE 26.2 MMOL/L (24-32); eGFR 80 ML/MIN
[2017-12-20 09:39] LABS: ALBUMIN/GLOBULIN RATIO 0.4 (1.1-1.5); GLUCOSE 102 MG/DL (70-104); TOTAL PROTEIN 6.8 G/DL (6.4-8.2)
[2017-12-20 10:02] LABS: ANISOCYTOSIS 1+; PLATELET ESTIMATE DECREASED; TOTAL CELLS COUNTED 100
[2017-12-20 10:50] VITALS: BP 96/57
[2017-12-20] MEDS ORDERED: HYDROmorphone 1 mg/ml syringe IV PRN ×2 (11:15)
[2017-12-20 11:41] VITALS: BP 103/58
[2017-12-20] MEDS: vancomycin inj 1,250 MG in normal saline 250ml IV soln 250 ML IV SCH (11:49)
[2017-12-20 12:22] VITALS: BP 103/58
[2017-12-20] MEDS ORDERED: Ivermectin 3mg tablet PO SCH (15:10)
[2017-12-20 18:00] VITALS: BP 107/64
[2017-12-20] MEDS: hydrOXYzine 10 MG tablet PO SCH (20:31)
[2017-12-20] MEDS: traMADol 50MG tablet PO PRN (20:39)
[2017-12-21] VITALS: BP 110/65
[2017-12-21] MEDS: lactulose 20gm/30ml cup PO SCH ×3 (00:14→16:22)
[2017-12-21] MEDS: gabapentin 100mg capsule PO SCH ×3 (00:14→16:22)
[2017-12-21 07:00] VITALS: BP 110/63
[2017-12-21] MEDS ORDERED: CefTRIAXone/D5W-Rocephin 1gm 50 ML IV SCH (08:00)
[2017-12-21] MEDS: multivitamins, therapeutics tablet PO SCH (08:21)
[2017-12-21] MEDS: pantoprazole 40mg Tablet.DR PO SCH (08:21)
[2017-12-21] MEDS: folic acid 1mg tablet PO SCH (08:21)
[2017-12-21] MEDS: thiamine 100mg tablet PO SCH (08:22)
[2017-12-21] MEDS: lactobacillus rhamnosus 10,000 MMU CELLS/CAPSULE PO SCH ×2 (08:22→20:12)
[2017-12-21] MEDS: furosemide 20MG tablet PO SCH (08:22)
[2017-12-21] MEDS: rifaximin 550mg tablet PO SCH ×2 (08:23→20:12)
[2017-12-21] MEDS: spironolactone 25 MG tablet PO SCH ×2 (08:23→20:00)
[2017-12-21] MEDS: hydrOXYzine 10 MG tablet PO SCH ×2 (08:23→20:12)
[2017-12-21] MEDS ORDERED: VANCOMYCIN LEVEL IV ONE (10:30)
[2017-12-21 11:00] VITALS: BP 100/55
[2017-12-21 15:33] LABS: BASOPHILS # (AUTO) 0.1 X10'3 (0-0.2); EOSINOPHILS # (AUTO) 0.2 X10'3 (0-0.9); EOSINOPHILS % (AUTO) 3.9 % (0-6); HEMATOCRIT 32.9 % (42.0-52.0); HEMOGLOBIN 11.3 g/dl (14.0-17.9); LYMPHOCYTES # (AUTO) 1.8 X10'3 (1.1-4.8); MEAN CORPUSCULAR HEMOGLOBIN 37.5 PG (27.0-31.0); MEAN CORPUSCULAR HGB CONC 34.2 % (33.0-36.5); MEAN CORPUSCULAR VOLUME 109.6 FL (78-98); MEAN PLATELET VOLUME 8.7 FL (7.4-10.4); MONOCYTES # (AUTO) 0.9 X10'3 (0-0.9); MONOCYTES % (AUTO) 15.1 % (2-12); NEUTROPHILS # (AUTO) 3.1 X10'3 (1.8-7.7); PLATELET COUNT 137 X10'3 (140-440); RED CELL DISTRIBUTION WIDTH 15.2 % (11.5-14.5); WHITE BLOOD COUNT 6.1 X10'3 (4.5-11.0)
[2017-12-21 15:58] VITALS: BP_SYST 104; BP_SYST 68; BP_SYST 98; BP_DIAS 39; BP_DIAS 52; BP_DIAS 69
[2017-12-21 18:00] VITALS: BP 97/59
[2017-12-22] VITALS: BP 94/56
[2017-12-22] MEDS: gabapentin 100mg capsule PO SCH ×3 (00:07→15:30)
[2017-12-22] MEDS: lactulose 20gm/30ml cup PO SCH ×3 (00:07→15:30)
[2017-12-22 06:04] LABS: ALANINE AMINOTRANSFERASE 27 U/L (12-78); ALBUMIN 1.8 G/DL (3.4-5.0); ALKALINE PHOSPHATASE 145 IU/L (46-116); ANION GAP 8 (8-16); ASPARTATE AMINO TRANSFERASE 59 U/L (10-37); BILIRUBIN,TOTAL 3.8 MG/DL (0.1-1.0); BLOOD UREA NITROGEN 8 MG/DL (7-18); BUN/CREATININE RATIO 9.6 (5.4-32.0); CALCIUM 8.1 MG/DL (8.5-10.1); CHLORIDE 100 MMOL/L (99-107); CREATININE 0.83 MG/DL (0.60-1.10); POTASSIUM 3.8 MMOL/L (3.5-5.1); SODIUM 131 MMOL/L (135-145); eGFR > 90 ML/MIN
[2017-12-22 06:05] LABS: ALBUMIN/GLOBULIN RATIO 0.3 (1.1-1.5); GLUCOSE 95 MG/DL (70-104)
[2017-12-22 06:11] LABS: BASOPHILS # (AUTO) 0.2 X10'3 (0-0.2); BASOPHILS % (AUTO) 2.6 % (0-1); EOSINOPHILS # (AUTO) 0.3 X10'3 (0-0.9); EOSINOPHILS % (AUTO) 4.6 % (0-6); HEMATOCRIT 31.6 % (42.0-52.0); HEMOGLOBIN 10.8 g/dl (14.0-17.9); LYMPHOCYTES # (AUTO) 1.9 X10'3 (1.1-4.8); LYMPHOCYTES % (AUTO) 29.3 % (21-51); MEAN CORPUSCULAR HEMOGLOBIN 37.2 PG (27.0-31.0); MEAN CORPUSCULAR HGB CONC 34.2 % (33.0-36.5); MEAN CORPUSCULAR VOLUME 108.8 FL (78-98); MEAN PLATELET VOLUME 8.2 FL (7.4-10.4); MONOCYTES % (AUTO) 15.6 % (2-12); NEUTROPHILS # (AUTO) 3.1 X10'3 (1.8-7.7); NEUTROPHILS % (AUTO) 47.9 % (42-75); PLATELET COUNT 136 X10'3 (140-440); RED CELL DISTRIBUTION WIDTH 15.5 % (11.5-14.5); WHITE BLOOD COUNT 6.4 X10'3 (4.5-11.0)
[2017-12-22 07:00] VITALS: BP_SYST 113; BP_SYST 71; BP_SYST 94; BP_DIAS 36; BP_DIAS 54; BP_DIAS 93
[2017-12-22] MEDS: rifaximin 550mg tablet PO SCH ×2 (07:51→19:22)
[2017-12-22] MEDS: furosemide 20MG tablet PO SCH (07:51)
[2017-12-22] MEDS: hydrOXYzine 10 MG tablet PO SCH ×2 (07:51→19:22)
[2017-12-22] MEDS: thiamine 100mg tablet PO SCH (07:51)
[2017-12-22] MEDS: lactobacillus rhamnosus 10,000 MMU CELLS/CAPSULE PO SCH ×2 (07:51→19:22)
[2017-12-22] MEDS: multivitamins, therapeutics tablet PO SCH (07:51)
[2017-12-22] MEDS: pantoprazole 40mg Tablet.DR PO SCH (07:52)
[2017-12-22] MEDS: folic acid 1mg tablet PO SCH (07:52)
[2017-12-22] MEDS: spironolactone 25 MG tablet PO SCH (07:52)
[2017-12-22] MEDS: levoFLOXACIN-Levaquin 500mg/D5 100 ML IV SCH (07:52)
[2017-12-22] MEDS: traMADol 50MG tablet PO PRN ×3 (09:57→19:37)
[2017-12-22 11:34] VITALS: BP 104/57
[2017-12-22 19:00] VITALS: BP 112/43
[2017-12-22] MEDS: ondansetron/PF 4mg/2ml inj IV PRN (19:22)
[2017-12-23] VITALS: BP_SYST 59; BP_SYST 90; BP_SYST 94; BP_DIAS 31; BP_DIAS 55; BP_DIAS 60
[2017-12-23] MEDS: lactulose 20gm/30ml cup PO SCH ×3 (00:26→16:31)
[2017-12-23] MEDS: gabapentin 100mg capsule PO SCH ×3 (00:26→16:31)
[2017-12-23 05:22] LABS: BASOPHILS # (AUTO) 0.2 X10'3 (0-0.2); BASOPHILS % (AUTO) 2.9 % (0-1); EOSINOPHILS # (AUTO) 0.3 X10'3 (0-0.9); EOSINOPHILS % (AUTO) 5.2 % (0-6); HEMATOCRIT 33.7 % (42.0-52.0); HEMOGLOBIN 11.4 g/dl (14.0-17.9); LYMPHOCYTES # (AUTO) 2.1 X10'3 (1.1-4.8); LYMPHOCYTES % (AUTO) 32.7 % (21-51); MEAN CORPUSCULAR HEMOGLOBIN 37.2 PG (27.0-31.0); MEAN CORPUSCULAR VOLUME 109.6 FL (78-98); MEAN PLATELET VOLUME 8.2 FL (7.4-10.4); MONOCYTES % (AUTO) 15.8 % (2-12); NEUTROPHILS # (AUTO) 2.8 X10'3 (1.8-7.7); NEUTROPHILS % (AUTO) 43.4 % (42-75); PLATELET COUNT 156 X10'3 (140-440); RED BLOOD COUNT 3.07 X10'6 (4.70-6.10); RED CELL DISTRIBUTION WIDTH 14.9 % (11.5-14.5); WHITE BLOOD COUNT 6.5 X10'3 (4.5-11.0)
[2017-12-23 05:27] LABS: ALANINE AMINOTRANSFERASE 30 U/L (12-78); ALKALINE PHOSPHATASE 148 IU/L (46-116); ANION GAP 6 (8-16); ASPARTATE AMINO TRANSFERASE 49 U/L (10-37); BILIRUBIN,TOTAL 3.9 MG/DL (0.1-1.0); BLOOD UREA NITROGEN 6 MG/DL (7-18); BUN/CREATININE RATIO 7.9 (5.4-32.0); CALCIUM 8.2 MG/DL (8.5-10.1); CHLORIDE 101 MMOL/L (99-107); CREATININE 0.76 MG/DL (0.60-1.10); SODIUM 132 MMOL/L (135-145); TOTAL CARBON DIOXIDE 24.6 MMOL/L (24-32); eGFR > 90 ML/MIN
[2017-12-23 05:28] LABS: ALBUMIN/GLOBULIN RATIO 0.4 (1.1-1.5); GLUCOSE 90 MG/DL (70-104); TOTAL PROTEIN 7.3 G/DL (6.4-8.2)
[2017-12-23 07:40] VITALS: BP 88/49
[2017-12-23 07:41] VITALS: BP_SYST 83; BP_SYST 88; BP_DIAS 49; BP_DIAS 50
[2017-12-23] MEDS: thiamine 100mg tablet PO SCH (09:26)
[2017-12-23] MEDS: multivitamins, therapeutics tablet PO SCH (09:26)
[2017-12-23] MEDS: folic acid 1mg tablet PO SCH (09:26)
[2017-12-23] MEDS: lactobacillus rhamnosus 10,000 MMU CELLS/CAPSULE PO SCH ×2 (09:27→19:49)
[2017-12-23] MEDS: rifaximin 550mg tablet PO SCH ×2 (09:27→19:49)
[2017-12-23] MEDS: pantoprazole 40mg Tablet.DR PO SCH (09:27)
[2017-12-23] MEDS: levoFLOXACIN-Levaquin 500mg/D5 100 ML IV SCH (09:28)
[2017-12-23] MEDS: hydrOXYzine 10 MG tablet PO SCH ×2 (09:34→19:49)
[2017-12-23] MEDS ORDERED: normal saline 1000ml 1,000 ML IVB ONE ×2 (09:41→16:02)
[2017-12-23 11:00] VITALS: BP 94/58
[2017-12-23] MEDS: normal saline 1000ml 1,000 ML IV SCH ×2 (12:11→19:45)
[2017-12-23 20:00] VITALS: BP_SYST 112; BP_SYST 62; BP_SYST 88; BP_DIAS 28; BP_DIAS 54; BP_DIAS 61
[2017-12-23] MEDS: nystatin 15 GM powder TP SCH (21:41)
[2017-12-23] MEDS: traMADol 50MG tablet PO PRN (21:50)
[2017-12-24] VITALS: BP 113/68
[2017-12-24] MEDS: lactulose 20gm/30ml cup PO SCH ×3 (01:01→16:00)
[2017-12-24] MEDS: gabapentin 100mg capsule PO SCH ×3 (01:01→16:00)
[2017-12-24] MEDS: normal saline 1000ml 1,000 ML IV SCH ×2 (03:34→15:45)
[2017-12-24 05:52] LABS: ALANINE AMINOTRANSFERASE 31 U/L (12-78); ALBUMIN 1.7 G/DL (3.4-5.0); ALBUMIN/GLOBULIN RATIO 0.4 (1.1-1.5); ALKALINE PHOSPHATASE 134 IU/L (46-116); ANION GAP 7 (8-16); ASPARTATE AMINO TRANSFERASE 47 U/L (10-37); BILIRUBIN,TOTAL 2.7 MG/DL (0.1-1.0); BLOOD UREA NITROGEN 5 MG/DL (7-18); BUN/CREATININE RATIO 6.5 (5.4-32.0); CALCIUM 7.2 MG/DL (8.5-10.1); CHLORIDE 106 MMOL/L (99-107); CREATININE 0.77 MG/DL (0.60-1.10); GLUCOSE 82 MG/DL (70-104); POTASSIUM 3.7 MMOL/L (3.5-5.1); SODIUM 134 MMOL/L (135-145); TOTAL CARBON DIOXIDE 21.5 MMOL/L (24-32); TOTAL PROTEIN 6.3 G/DL (6.4-8.2); eGFR > 90 ML/MIN
[2017-12-24 06:45] LABS: BASOPHILS # (AUTO) 0.1 X10'3 (0-0.2); BASOPHILS % (AUTO) 2.4 % (0-1); EOSINOPHILS # (AUTO) 0.3 X10'3 (0-0.9); EOSINOPHILS % (AUTO) 6.2 % (0-6); HEMATOCRIT 30.7 % (42.0-52.0); HEMOGLOBIN 10.4 g/dl (14.0-17.9); LYMPHOCYTES # (AUTO) 1.5 X10'3 (1.1-4.8); LYMPHOCYTES % (AUTO) 29.4 % (21-51); MEAN CORPUSCULAR HEMOGLOBIN 36.9 PG (27.0-31.0); MEAN CORPUSCULAR HGB CONC 33.7 % (33.0-36.5); MEAN CORPUSCULAR VOLUME 109.5 FL (78-98); MEAN PLATELET VOLUME 8.4 FL (7.4-10.4); MONOCYTES # (AUTO) 0.8 X10'3 (0-0.9); MONOCYTES % (AUTO) 15.5 % (2-12); NEUTROPHILS # (AUTO) 2.4 X10'3 (1.8-7.7); NEUTROPHILS % (AUTO) 46.5 % (42-75); PLATELET COUNT 149 X10'3 (140-440); RED BLOOD COUNT 2.81 X10'6 (4.70-6.10); RED CELL DISTRIBUTION WIDTH 14.6 % (11.5-14.5); WHITE BLOOD COUNT 5.2 X10'3 (4.5-11.0)
[2017-12-24 08:00] VITALS: BP_SYST 116; BP_SYST 77; BP_SYST 98; BP_DIAS 51; BP_DIAS 66; BP_DIAS 73
[2017-12-24] MEDS: multivitamins, therapeutics tablet PO SCH (08:30)
[2017-12-24] MEDS: folic acid 1mg tablet PO SCH (08:30)
[2017-12-24] MEDS: hydrOXYzine 10 MG tablet PO SCH (08:30)
[2017-12-24] MEDS: lactobacillus rhamnosus 10,000 MMU CELLS/CAPSULE PO SCH (08:30)
[2017-12-24] MEDS: thiamine 100mg tablet PO SCH (08:30)
[2017-12-24] MEDS: nystatin 15 GM powder TP SCH ×2 (08:31→13:00)
[2017-12-24] MEDS: pantoprazole 40mg Tablet.DR PO SCH (08:31)
[2017-12-24] MEDS: rifaximin 550mg tablet PO SCH (08:31)
[2017-12-24 09:16] LABS: TOTAL CELLS COUNTED 100
[2017-12-24 09:17] LABS: PLATELET ESTIMATE NORMAL
[2017-12-24 09:18] LABS: ANISOCYTOSIS 1+; POLYCHROMASIA FEW; SPHEROCYTES FEW; TARGET CELLS FEW
[2017-12-24 10:47] VITALS: BP 116/73
[2017-12-24] MEDS ORDERED: levoFLOXACIN 500mg tablet PO SCH (11:00)
[2017-12-24] MEDS: traMADol 50MG tablet PO PRN (11:48)
[2017-12-24] MEDS ORDERED: IVER3TAB2 PO (13:04)
[2017-12-24] MEDS ORDERED: RIFA550T PO (13:04)
[2017-12-24] MEDS ORDERED: LEVO500T89 PO (13:04)
[2017-12-24] MEDS ORDERED: MULT-1179 PO (13:04)
[2017-12-24] MEDS ORDERED: LACT10SO32 PO (13:04)
[2017-12-24] MEDS ORDERED: NYSPWD TP (13:04)
== END 2017-12-24 17:07 | disposition home or self-care (01) | DRG 279 ==
LOC: ER 17:40 → ED HOLD 21:52 → SUR 3N 23:04
PROVIDERS: ADMIT Family Medicine; ATTEND Family Medicine
PROC: BW211ZZ Computerized Tomography (CT Scan) of Abdomen and Pelvis using Low Osmolar Contrast (ICD-10-PCS; 2017-12-13)
PROC: 0W9G3ZZ Drainage of Peritoneal Cavity, Percutaneous Approach (ICD-10-PCS; principal; 2017-12-14)
DX: K72.90 Hepatic failure, unspecified without coma (principal); E43 Unspecified severe protein-calorie malnutrition; K65.2 Spontaneous bacterial peritonitis; D61.818 Other pancytopenia; J18.9 Pneumonia, unspecified organism; I95.9 Hypotension, unspecified; K70.31 Alcoholic cirrhosis of liver with ascites; D69.6 Thrombocytopenia, unspecified; E87.2 Acidosis; K76.6 Portal hypertension; N28.1 Cyst of kidney, acquired; R16.1 Splenomegaly, not elsewhere classified; D64.9 Anemia, unspecified; I10 Essential (primary) hypertension; F41.9 Anxiety disorder, unspecified; M19.90 Unspecified osteoarthritis, unspecified site; G40.909 Epilepsy, unspecified, not intractable, without status epilepticus; J44.9 Chronic obstructive pulmonary disease, unspecified; B19.20 Unspecified viral hepatitis C without hepatic coma; F10.10 Alcohol abuse, uncomplicated; K76.9 Liver disease, unspecified; B85.2 Pediculosis, unspecified; Y90.9 Presence of alcohol in blood, level not specified; J44.0 Chronic obstructive pulmonary disease with (acute) lower respiratory infection; D68.9 Coagulation defect, unspecified; N39.0 Urinary tract infection, site not specified; G89.29 Other chronic pain; B96.4 Proteus (mirabilis) (morganii) as the cause of diseases classified elsewhere; E87.1 Hypo-osmolality and hyponatremia; Z68.1 Body mass index [BMI] 19.9 or less, adult; Z88.1 Allergy status to other antibiotic agents; Z88.8 Allergy status to other drugs, medicaments and biological substances; Z59.0 Homelessness; Z87.891 Personal history of nicotine dependence; Z91.14 Patient's other noncompliance with medication regimen; Z80.9 Family history of malignant neoplasm, unspecified; Z88.5 Allergy status to narcotic agent
CPT/HCPCS: 36415; 49083; 71045; 74177; 74183; 80053; 80202; 80305; 80320; 81001; 81003; 82042; 82103; 82140; 82150; 82272; 82945; 82948; 83036; 83605; 83615; 83690; 83735; 84100; 84145; 84157; 85025; 85610; 87040; 87070; 87077; 87088; 87186; 89051; 93005; 94640; 94667; 94760; 96365; 97110; 97116; 97161; 97530; 99285; A6257; A6449; A9579; J0456; J0696; J1170; J1956; J2001; J2060; J2405; J2543; J3370; J3411; J3475; J3490; J7030; P9047; Q9967

== ENCOUNTER 2018-01-10 13:34 | Emergency (ER) | payer MEDICAID ==
[~2018-01-10] VITALS: Ht 177.8 cm; Wt 71.0 kg
[~2018-01-10 13:34] MED LIST changes: -GABA600T2 PO; -HYDR-565 PO; +IVER3TAB2 PO; +LACT10SO32 PO; +LEVO500T89 PO; +MULT-1179 PO; -NO HOME MEDS; +NYSPWD TP; +RIFA550T PO; -blood pressure med
[2018-01-10] MEDS ORDERED: normal saline 1000ML IV soln IVB ONE (13:50)
[2018-01-10 14:40] LABS: EOSINOPHILS # (AUTO) 0.3 X10'3 (0-0.9); EOSINOPHILS % (AUTO) 7.5 % (0-6); HEMATOCRIT 28.3 % (42.0-52.0); HEMOGLOBIN 9.8 g/dl (14.0-17.9); LYMPHOCYTES # (AUTO) 2.3 X10'3 (1.1-4.8); LYMPHOCYTES % (AUTO) 51.2 % (21-51); MEAN CORPUSCULAR HEMOGLOBIN 35.5 PG (27.0-31.0); MEAN CORPUSCULAR HGB CONC 34.5 % (33.0-36.5); MEAN PLATELET VOLUME 7.3 FL (7.4-10.4); MONOCYTES # (AUTO) 0.4 X10'3 (0-0.9); MONOCYTES % (AUTO) 7.8 % (2-12); NEUTROPHILS # (AUTO) 1.5 X10'3 (1.8-7.7); NEUTROPHILS % (AUTO) 32.5 % (42-75); PLATELET COUNT 66 X10'3 (140-440); RED BLOOD COUNT 2.75 X10'6 (4.70-6.10); RED CELL DISTRIBUTION WIDTH 14.9 % (11.5-14.5); WHITE BLOOD COUNT 4.5 X10'3 (4.5-11.0)
[2018-01-10 14:51] LABS: INR 1.4 INR; PARTIAL THROMBOPLASTIN TIME 33 SECONDS (22-32)
[2018-01-10 14:54] LABS: ALANINE AMINOTRANSFERASE 25 U/L (12-78); ALBUMIN 2.1 G/DL (3.4-5.0); ALBUMIN/GLOBULIN RATIO 0.5 (1.1-1.5); ALKALINE PHOSPHATASE 159 IU/L (46-116); ANION GAP 10 (8-16); ASPARTATE AMINO TRANSFERASE 52 U/L (10-37); BILIRUBIN,TOTAL 1.6 MG/DL (0.1-1.0); BLOOD UREA NITROGEN 7 MG/DL (7-18); BUN/CREATININE RATIO 10.6 (5.4-32.0); CALCIUM 7.4 MG/DL (8.5-10.1); CHLORIDE 105 MMOL/L (99-107); CREATININE 0.66 MG/DL (0.60-1.10); GLUCOSE 88 MG/DL (70-104); POTASSIUM 3.4 MMOL/L (3.5-5.1); SODIUM 137 MMOL/L (135-145); TOTAL CARBON DIOXIDE 21.7 MMOL/L (24-32); TOTAL PROTEIN 6.5 G/DL (6.4-8.2); eGFR > 90 ML/MIN
[2018-01-10 14:57] LABS: MAGNESIUM 1.4 MG/DL (1.5-2.4); PHOSPHORUS 3.8 MG/DL (2.3-4.5)
[2018-01-10 14:58] LABS: ACETAMINOPHEN < 2.0 UG/ML (10-30)
[2018-01-10] MEDS ORDERED: lactulose 20gm/30ml cup PO ONE (15:05)
[2018-01-10] MEDS ORDERED: potassium Cl 20 mEq SR tablet PO ONE (15:05)
[2018-01-10 15:09] LABS: ETHANOL 0.347 GM/DL (0.0-0.010)
[2018-01-10] MEDS: magnesium 1gm/100ml D5W IVPB 100 ML IV SCH ×2 (15:20→16:45)
[2018-01-10 15:26] VITALS: BP 112/67
== END 2018-01-10 18:15 | disposition home or self-care (01) ==
LOC: ER 13:35
DX: F10.129 Alcohol abuse with intoxication, unspecified (principal); R07.89 Other chest pain; R47.81 Slurred speech; I10 Essential (primary) hypertension; G89.29 Other chronic pain; Z59.0 Homelessness; Z88.5 Allergy status to narcotic agent; Z88.1 Allergy status to other antibiotic agents; Z88.8 Allergy status to other drugs, medicaments and biological substances; Y90.9 Presence of alcohol in blood, level not specified
CPT/HCPCS: 36415; 70450; 71045; 80053; 80320; 80329; 82140; 83735; 84100; 84484; 85025; 85610; 85730; 93005; 96365; 96366; 99285

== ENCOUNTER 2018-08-15 06:16 | Emergency (ER) | payer MEDICAID ==
[~2018-08-15] VITALS: Ht 177.8 cm; Wt 56.8 kg
[2018-08-15] MEDS: normal saline 1000ML IV soln IVB ONE (07:33)
[2018-08-15 07:54] LABS: BASOPHILS # (AUTO) 0.1 X10'3 (0-0.2); BASOPHILS % (AUTO) 1.3 % (0-1); EOSINOPHILS # (AUTO) 0.3 X10'3 (0-0.9); EOSINOPHILS % (AUTO) 6.2 % (0-6); HEMOGLOBIN 10.9 g/dl (14.0-17.9); LYMPHOCYTES % (AUTO) 24.1 % (21-51); MEAN CORPUSCULAR HEMOGLOBIN 31.5 PG (27.0-31.0); MEAN CORPUSCULAR HGB CONC 33.9 g/dL (33.0-36.5); MEAN CORPUSCULAR VOLUME 92.9 FL (78-98); MEAN PLATELET VOLUME 7.4 FL (7.4-10.4); MONOCYTES # (AUTO) 0.6 X10'3 (0-0.9); MONOCYTES % (AUTO) 13.2 % (2-12); NEUTROPHILS # (AUTO) 2.3 X10'3 (1.8-7.7); NEUTROPHILS % (AUTO) 55.2 % (42-75); PLATELET COUNT 100 X10'3 (140-440); RED BLOOD COUNT 3.45 X10'6 (4.70-6.10); RED CELL DISTRIBUTION WIDTH 18.3 % (11.5-14.5); WHITE BLOOD COUNT 4.2 X10'3 (4.5-11.0)
[2018-08-15 07:55] LABS: ALANINE AMINOTRANSFERASE 21 U/L (12-78); ALBUMIN 2.9 G/DL (3.4-5.0); ALBUMIN/GLOBULIN RATIO 0.6 (1.1-1.5); ALKALINE PHOSPHATASE 168 IU/L (46-116); ASPARTATE AMINO TRANSFERASE 38 U/L (10-37); BILIRUBIN,TOTAL 1.2 MG/DL (0.1-1.0); BLOOD UREA NITROGEN 13 MG/DL (7-18); BUN/CREATININE RATIO 18.6 (5.4-32.0); CALCIUM 8.3 MG/DL (8.5-10.1); GLUCOSE 94 MG/DL (70-104); LIPASE 106 U/L (73-393); TOTAL PROTEIN 7.5 G/DL (6.4-8.2); eGFR > 90 ML/MIN
[2018-08-15 07:56] LABS: ANION GAP 12 (8-16); CHLORIDE 107 MMOL/L (99-107); POTASSIUM 3.5 MMOL/L (3.5-5.1); SODIUM 141 MMOL/L (135-145)
[2018-08-15 08:09] LABS: INR 1.3 INR
[2018-08-15] MEDS ORDERED: PANT-47 PO (08:57)
[2018-08-15] MEDS: HYDROcodone/acetaminophen 5mg/325mg tablet PO ONE (09:19)
[2018-08-15 09:36] VITALS: BP 145/80
== END 2018-08-15 09:57 | disposition home or self-care (01) ==
LOC: ER 06:16
DX: R53.1 Weakness (principal); R10.11 Right upper quadrant pain; R10.13 Epigastric pain; I10 Essential (primary) hypertension; M19.90 Unspecified osteoarthritis, unspecified site; G89.29 Other chronic pain; Z59.0 Homelessness; Z79.2 Long term (current) use of antibiotics; Z79.899 Other long term (current) drug therapy
CPT/HCPCS: 36415; 80053; 83690; 85025; 85610; 99283; J7030